=== PATIENT | male | born 1960 | race Caucasian/White ===

== ENCOUNTER → 2020-09-14 | Day surgery (SDC) | payer OTHER ==
[~2020-09-14] VITALS: Ht 167.6 cm; Wt 68.0 kg
[~2020-09-14] MED LIST: CERTAGEN1 EACH PO; FLOMAX0.4 MG PO; LEXAPRO 10MG TA10 MG PO; LIPITOR40 MG PO; NORCO 5-325 TA1 EACH PO; ONDANSETRON ODT8 MG PO
[2020-09-14 08:25] LABS: HCT 46.9 % (42.0-52.0); HGB 16.1 g/dl (13.2-18.0); MCHC 34.3 g/dL (32.0-36.0); MCV 93.2 fL (78.0-100.0); MPV 9.8 fL (6.0-9.5); RBC 5.03 M/uL (4.70-6.00); RDW 13.3 % (11.5-14.0); WBC 4.8 K/uL (4.0-10.5)
[2020-09-14 08:44] LABS: ALBUMIN 4.1 g/dL (3.4-5.0); BILIRUBIN - TOTAL 0.7 mg/dL (0.2-1.0); BUN/CREAT RATIO (CALC) 17.4 RATIO; CREATININE 0.92 mg/dL (0.67-1.17); GLOBULIN (CALCULATION) 3.6 g/dL; POTASSIUM 3.9 mmol/L (3.5-5.1); TOTAL PROTEIN 7.7 g/dL (6.4-8.2)
== END | disposition home or self-care (01) ==
LOC: FAS 07:52
PROVIDERS: Surgery
DX: Z12.11 Encounter for screening for malignant neoplasm of colon (principal); K63.5 Polyp of colon; K57.30 Diverticulosis of large intestine without perforation or abscess without bleeding; E78.5 Hyperlipidemia, unspecified; N40.0 Benign prostatic hyperplasia without lower urinary tract symptoms; F32.9 Major depressive disorder, single episode, unspecified; Z86.010 Personal history of colon polyps; Z79.899 Other long term (current) drug therapy
CPT/HCPCS: 36415; 80053; 88305; J0690; J2704; J7120

== ENCOUNTER 2021-07-24 16:18 | Emergency (ER) | payer OTHER | END 2021-07-24 18:07 | disposition home or self-care (01) | LOC: FER 16:18 | DX: N40.1 Benign prostatic hyperplasia with lower urinary tract symptoms (principal); R33.9 Retention of urine, unspecified; Z79.899 Other long term (current) drug therapy ==